=== PATIENT | female | born 2000 | race Caucasian/White ===

== ENCOUNTER 2020-08-19 19:39 | Emergency (ER) | payer BC ==
[~2020-08-19] VITALS: Ht 170.2 cm; Wt 73.6 kg
[2020-08-19 19:42] VITALS: BP 130/84; TEMP 98.7
[2020-08-19 21:25] VITALS: PULSE 94
== END 2020-08-19 21:25 | disposition home or self-care (01) ==
LOC: COL.ER 19:39
DX: S61.211A Laceration without foreign body of left index finger without damage to nail, initial encounter (principal); S67.191A Crushing injury of left index finger, initial encounter; X58.XXXA Exposure to other specified factors, initial encounter

== ENCOUNTER → 2020-09-02 | Outpatient (CLI) | payer BC ==
[2020-09-02 10:38] VITALS: BP 116/65; PULSE 80; TEMP 98.1
== END ==
LOC: COL.ER 10:33
DX: Z48.02 Encounter for removal of sutures (principal)